=== PATIENT | female | born 1990 | race Two or more races ===

== ENCOUNTER 2019-03-20 11:30 | Emergency (ER) | payer SELFPAY ==
[2019-03-20 11:41] VITALS: BP 148/88; PULSE 95; TEMP 98; BMI 49.6
[2019-03-20] MEDS ORDERED: DEXAMETHASONE LIQUID 0.5 MG/5 ML PO ONE (13:08)
--- NOTE | 2019-03-20 13:09 | PDOC ---
History of Present Illness - General Chief Complaint: Sore Throat Stated Complaint: SORE THROAT/TIGHTNESS IN CHEST Time Seen by Provider: 03/20/19 11:47 History Source: Patient Exam Limitations: No Limitations Past History - Travel Traveled outside of the country in the last 30 days: No - Past Medical History Allergies/Adverse Reactions: Allergies Allergy/AdvReac Type Severity Reaction Status Date / Time No Known Allergies Allergy Verified 03/20/19 11:41 Home Medications: Ambulatory Orders Acetaminophen W/ Codeine #3 [Tylenol # 3] 1 combo PO Q6H PRN #12 tablet Cephalexin Monohydrate [Keflex -] 500 mg PO Q8H #21 capsule 01/08/13 Sulfamethoxazole/Trimethoprim [Bactrim DS -] 1 tab PO BID #14 tablet 01/08/13 Amoxicillin - [Amoxicillin 500mg Capsule -] 500 mg PO BID #14 capsule 03/20/19 Ibuprofen 600 mg PO Q6H #30 tablet 03/20/19 COPD: No - Immunization History Td Vaccination: Yes Immunization Up to Date: No - Psycho Social/Smoking Cessation Hx Smoking Status: No Smoking History: Never smoked Years of Tobacco Use: 0 Number of Cigarettes Smoked Daily: 0 Cigars Per Day: 0 Hx Alcohol Use: Yes (glass wine once every 3 weeks-does not finish) Drug/Substance Use Hx: No Review of Systems - Review of Systems Able to Perform ROS?: Yes Comments:: 03/20/19 13:04 CONSTITUTIONAL: Absent: fever, chills, diaphoresis, generalized weakness, malaise, loss of appetite HEENT: Present: Throat pain, difficulty swallowing. Absent: rhinorrhea, nasal congestion, throat swelling, difficulty swallowing, mouth swelling, ear pain, eye pain, visual Changes RESPIRATORY: Absent: cough, shortness of breath, dyspnea with exertion, orthopnea, wheezing, stridor, hemoptysis MUSCULOSKELETAL: Absent: myalgia, arthralgia, joint swelling SKIN: Absent: rash, itching, pallor NEUROLOGIC: Absent: headache, focal weakness or paresthesias, dizziness, unsteady gait, seizure, mental status changes, bladder or bowel incontinence PSYCHIATRIC: Absent: anxiety, depression, suicidal or homicidal ideation, hallucinations. Is the patient limited Spanish proficient: No *Physical Exam - Vital Signs Last Vital Signs Temp Pulse Resp BP Pulse Ox 98 F 95 H 18 148/88 100 03/20/19 11:39 03/20/19 11:39 03/20/19 11:39 03/20/19 11:39 03/20/19 11:39 - Physical Exam Comments: 03/20/19 13:06 GENERAL: The patient is awake, alert, and fully oriented, in no acute distress. HEAD: Normal with no signs of trauma. EYES: Pupils equal, round and reactive to light, extraocular movements intact, sclera anicteric, conjunctiva clear. HEENT: No nasal congestion or rhinorrhea. No sinus Tenderness. Mucous membranes are moist. (+) tonsillar erythema, exudate and edema. Uvula is midline. No TM bulging, dullness or erythema EXTREMITIES: Normal range of motion, no edema. NEUROLOGICAL: Normal speech, normal gait. PSYCH: Normal mood, normal affect. SKIN: Warm, Dry, normal turgor, no rashes or lesions noted. Medical Decision Making - Medical Decision Making 03/20/19 13:06 The patient is a 28-year-old female with no past medical history who presents the ER today with 5 days of sore throat. She states that 2 days ago the throat became more painful, became difficulty to swallow, and she noticed white spots on the back of her throat. She denies fever and coughing. She does state it is difficult to swallow and she has noticed a foul smell to her breath. Denies earache, difficulty breathing, chest pain, nausea and vomiting. A/P: Pharyngitis Centor criteria is a 4, likely strep pharyngitis especially given physical exam findings and halitosis We will treat with 1 week of amoxicillin. Motrin given for symptomatic relief. Culture sent. Decadron given in the ER one-time dose Discharge home with primary care follow-up. I discussed the physical exam findings, ancillary test results and final diagnoses with the patient. I answered all of the patient's questions. The patient was satisfied with the care received and felt comfortable with the discharge plan and treatment plan. The Patient agrees to follow up with the primary care physician/specialist within 24-72 hours. Return precautions were given. Discharge - Discharge Information Problems reviewed: Yes Clinical Impression/Diagnosis: Acute pharyngitis Qualifiers: Pharyngitis/tonsillitis etiology: unspecified etiology Qualified Code(s): J02.9 - Acute pharyngitis, unspecified Condition: Stable Disposition: HOME - Admission No - Follow up/Referral Referrals: Kraig Munoz MD [Staff Physician] - - Patient Discharge Instructions Patient Printed Discharge Instructions: DI for Strep Throat Additional Instructions: You have strep throat. This is a bacterial infection. Please take the amoxicillin 500 mg twice a day for one week. Please finish the prescription even if you feel better. You may take Motrin 600 mg every 6 hours as needed for pain or fever. Warm water gargles and cough drops and just may also help her symptoms. Please throw way your toothbrush 3 days into treatment to prevent reinfection. Please follow up with your primary care doctor next week. Return to emergency department if you have worsening pain, difficulty swallowing , changes in your voice, lightheadedness, dizziness, or any changes in your symptoms. - Post Discharge Activity Work/Back to School Note: Back to Work
[2019-03-20] MEDS ORDERED: DEXAMETHASONE SOD PHOSPHATE 10 MG/1 ML VIAL ONE (13:45)
== END 2019-03-20 13:56 | disposition home or self-care (01) ==
LOC: JERFT 11:30
DX: J02.0 Streptococcal pharyngitis (principal)
CPT/HCPCS: 87070; 87880; 99281-25

== ENCOUNTER 2021-11-15 19:56 | Emergency (ER) | payer OTHER ==
[2021-11-15 20:17] VITALS: BP 143/69; PULSE 81; RESP 17; TEMP 98.2; BMI 47.8
[2021-11-15] MEDS ORDERED: IBUPROFEN 600 MG TABLET (FP) PO ONE ×2 (21:00→21:01)
== END 2021-11-15 21:07 | disposition home or self-care (01) ==
LOC: JERFT 19:56
DX: M79.672 Pain in left foot (principal); S93.402A Sprain of unspecified ligament of left ankle, initial encounter
CPT/HCPCS: 73610-TC-LT-FY; 73630-TC-LT; 99284-25